=== PATIENT | male | born 1945 | race Two or more races ===

== ENCOUNTER 2019-10-13 20:34 | Emergency (ER) | payer BC ==
[~2019-10-13] VITALS: Ht 160 cm; Wt 65.3 kg
--- NOTE | 2019-10-13 20:45 | NUR ---
ED Nurse Note: patient walked in from home, pt c/o weakness and facial drooping for the last 3-4 days. Patient aao x 4 and ambulatory with weakness. Patient c/o aching neck pain 5/10, nonradiating. Patient placed in gown and cardiac cath technologist. No acute distress noted during assessment. Right AC 20g IV line established, blood drawn and sent to lab.
--- NOTE | 2019-10-13 20:45 | NUR ---
ED Nurse Note: ERMD at bedside.
[2019-10-13 20:48] VITALS: BP 151/80
--- NOTE | 2019-10-13 21:01 | NUR ---
ED Nurse Note: Patient taken to CT in stable condition.
--- NOTE | 2019-10-13 21:14 | Emergency Room Report ---
History of Present Illness General Chief Complaint: Generalized Weakness Source: Patient Present Illness HPI Patient is a 74-year-old male who presents after increased generalized weakness. Patient gradual onset of symptoms. Had did not have feeling weak for the past 3 days. Reports having decreased exercise tolerance. Had not been vomiting or having any diarrhea. Denies any cough. Denies any shortness of breath. 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 Reviewed Nursing Documentation: PMH: Agreed; PSxH: Agreed Nursing Documentation-PMH Past Medical History: No Stated History Review of Systems All Other Systems: negative except mentioned in HPI Physical Exam Vital Signs Date Time Temp Pulse Resp B/P (MAP) Pulse Ox O2 Delivery O2 Flow Rate FiO2 10/13/19 20:39 98.1 85 24 151/80 (103) 98 Room Air Sp02 EP Interpretation: reviewed, normal General Appearance: normal inspection, well appearing, no apparent distress, alert, GCS 15 Head: atraumatic ENT: normal ENT inspection, hearing grossly normal, normal voice Neck: normal inspection, full range of motion, supple, no bony tend Respiratory: normal inspection, lungs clear, normal breath sounds, no respiratory distress, no retraction, no wheezing Cardiovascular #1: regular rate, rhythm, no edema Gastrointestinal: normal inspection, normal bowel sounds, non tender, soft, no guarding, no hernia Genitourinary: no CVA tenderness Musculoskeletal: normal inspection, back normal, normal range of motion Neurologic: alert, motor strength/tone normal, sandfill operator III-XII nml as tested, oriented x3, responsive, speech normal, normal inspection Psychiatric: normal inspection, judgement/insight normal, mood/affect normal Medical Decision Making Diagnostic Impression: Primary Impression: Bilateral chronic intracranial subdural hematoma Additional Impression: Midline shift of brain due to hematoma ER Course Patient presented for generalized weakness. Differential diagnosis include was not limited to electrolyte abnormality, renal failure, myocardial infarction, CVA among others. Because of complexity of patient's case laboratory tests and imaging studies were ordered.Patient's laboratory testing was unremarkable. He was not noted to be on any anticoagulation. Patient was discussed with Dr. Abreu for neuro news production assistant at [facility] who agreed accept the patient as transfer. Labs Test 10/13/19 20:45 White Blood Count 6.7 K/UL (4.8-10.8) Red Blood Count 3.88 M/UL (4.70-6.10) Hemoglobin 12.9 G/DL (14.2-18.0) Hematocrit 39.3 % (42.0-52.0) Mean Corpuscular Volume 101 FL (80-99) Mean Corpuscular Hemoglobin 33.2 PG (27.0-31.0) Mean Corpuscular Hemoglobin Concent 32.8 G/DL (32.0-36.0) Red Cell Distribution Width 13.2 % (11.6-14.8) Platelet Count 203 K/UL (150-450) Mean Platelet Volume 6.7 FL (6.5-10.1) Neutrophils (%) (Auto) 56.3 % (45.0-75.0) Lymphocytes (%) (Auto) 30.7 % (20.0-45.0) Monocytes (%) (Auto) 9.5 % (1.0-10.0) Eosinophils (%) (Auto) 2.6 % (0.0-3.0) Basophils (%) (Auto) 1.0 % (0.0-2.0) Prothrombin Time 10.0 SEC (9.30-11.50) Prothromb Time International Ratio 0.9 (0.9-1.1) Activated Partial Thromboplast Time 27 SEC (23-33) Sodium Level 141 MMOL/L (136-145) Potassium Level 3.9 MMOL/L (3.5-5.1) Chloride Level 104 MMOL/L (98-107) Carbon Dioxide Level 26 MMOL/L (21-32) Anion Gap 11 mmol/L (5-15) Blood Urea Nitrogen 18 mg/dL (7-18) Creatinine 1.1 MG/DL (0.55-1.30) Estimat Glomerular Filtration Rate > 60 mL/min (>60) Glucose Level 104 MG/DL (74-106) Calcium Level 9.2 MG/DL (8.5-10.1) Total Bilirubin 0.4 MG/DL (0.2-1.0) Aspartate Amino Transf (AST/SGOT) 26 U/L (15-37) Alanine Aminotransferase (ALT/SGPT) 35 U/L (12-78) Alkaline Phosphatase 70 U/L (46-116) Troponin I 0.002 ng/mL (0.000-0.056) Total Protein 7.3 G/DL (6.4-8.2) Albumin 3.8 G/DL (3.4-5.0) Globulin 3.5 g/dL Albumin/Globulin Ratio 1.1 (1.0-2.7) Triglycerides Level 89 MG/DL (30-150) Cholesterol Level 217 MG/DL (< 200) LDL Cholesterol 148 mg/dL (<100) HDL Cholesterol 53 MG/DL (40-60) Cholesterol/HDL Ratio 4.1 (3.3-4.4) EKG Diagnostic Results Rate: normal Rhythm: NSR ST Segments: other - incomplete RBBB Last Vital Signs Date Time Temp Pulse Resp B/P (MAP) Pulse Ox O2 Delivery O2 Flow Rate FiO2 10/13/19 20:48 78 21 Room Air 10/13/19 20:48 98.2 151/80 100 Status: unchanged Disposition: SHORT-TERM HOSP Condition: Stable Matias Woody MD Oct 13, 2019 21:14
--- NOTE | 2019-10-13 21:19 | Diagnostic Imaging Report ---
CT head without contrast History: CVA Technique: Axial noncontrast head CT. CTDI is 53.4 mGy and DLP is 1025.9 mGy-cm. Technique more: One or more of the following dose reduction techniques were used: automated exposure control, adjustment of the mA and/or kV according to patient size, use of iterative reconstruction technique. Comparison: None Findings: Bilateral subdural hemorrhages are seen extending from anterior to posterior convexity measuring 1.6 cm on the right and 0.96 cm on the left. 4-5 mm left-sided midline shift is seen. Effacement of the sulci is noted. Paranasal sinuses mastoid air cells are clear. Incomplete ring of C1 noted posteriorly. Impression: 1. Right-sided 1.6 cm, left-sided 0.96 cm subdural hemorrhages, 4-5 mm left-sided midline shift of the septum pellucidum. <MYCVCSECTION> Communications: 10/13/19 21:25 Call Doctor Regarding Intracranial Hemorrhage, called Dr. Woody
--- NOTE | 2019-10-13 21:20 | NUR ---
ED Nurse Note: Returned from CT in stable condition and placed back on monitor.
[2019-10-13 21:22] LABS: EOSINOPHILS % (AUTO) 2.6 % (0.0-3.0); HEMATOCRIT 39.3 % (42.0-52.0); HEMOGLOBIN 12.9 G/DL (14.2-18.0); LYMPHOCYTES % (AUTO) 30.7 % (20.0-45.0); MEAN CORPUSCULAR VOLUME 101 FL (80-99); MONOCYTES % (AUTO) 9.5 % (1.0-10.0); NEUTROPHILS % (AUTO) 56.3 % (45.0-75.0); PLATELET COUNT 203 K/UL (150-450); RED BLOOD COUNT 3.88 M/UL (4.70-6.10); RED CELL DISTRIBUTION WIDTH 13.2 % (11.6-14.8); WHITE BLOOD COUNT 6.7 K/UL (4.8-10.8)
[2019-10-13 21:27] LABS: ANION GAP 11 mmol/L (5-15); BLOOD UREA NITROGEN 18 mg/dL (7-18); CALCIUM 9.2 MG/DL (8.5-10.1); CARBON DIOXIDE 26 MMOL/L (21-32); CHLORIDE 104 MMOL/L (98-107); CREATININE 1.1 MG/DL (0.55-1.30); POTASSIUM 3.9 MMOL/L (3.5-5.1); SODIUM 141 MMOL/L (136-145)
[2019-10-13 21:29] LABS: INR 0.9 (0.9-1.1)
[2019-10-13 21:31] LABS: ALANINE AMINOTRANSFERASE 35 U/L (12-78); ALBUMIN 3.8 G/DL (3.4-5.0); ALBUMIN/GLOBULIN RATIO 1.1 (1.0-2.7); ALKALINE PHOSPHATASE 70 U/L (46-116); ASPARTATE AMINO TRANSFERASE 26 U/L (15-37); BILIRUBIN,TOTAL 0.4 MG/DL (0.2-1.0); CHOLESTEROL 217 MG/DL (< 200); HDL CHOLESTEROL 53 MG/DL (40-60); TRIGLYCERIDES 89 MG/DL (30-150)
--- NOTE | 2019-10-13 21:33 | NUR ---
ED Nurse Note: ERMD at bedside.
--- NOTE | 2019-10-13 21:44 | NUR ---
ED Nurse Note: Spoke to patient's son Kojo and and gave an update.
[2019-10-13 22:34] VITALS: BP 132/69
--- NOTE | 2019-10-13 22:37 | NUR ---
ED Nurse Note: Reassessed patient and updated about ETA for ambulance to [facility]. Patient aao x 4 and able to answer questions accordingly, no acute distress noted during reassessment.
--- NOTE | 2019-10-13 23:03 | NUR ---
ED Nurse Note: Report given to GALINA Elliott at [facility].
[2019-10-13 23:45] VITALS: BP 140/74
--- NOTE | 2019-10-13 23:45 | NUR ---
ER DISCHARGE NOTE: Patient is cleared to be transferred to [facility] per ERMD, pt is aox4, on room air, with stable vital signs. Report given to GALINA Elliott at [facility]. Report given to ambulance personnel [facility] [address]. pt transported via gurney. pt took all belongings. pt stable upon transfer, no acute distress noted.
== END 2019-10-13 23:45 | disposition short-term general hospital (02) ==
LOC: EMR 21:26
DX: I62.03 Nontraumatic chronic subdural hemorrhage (principal); I45.10 Unspecified right bundle-branch block
CPT/HCPCS: 36415; 70450; 80053; 80061; 84484; 85025; 85610; 85730; 93005; 99284